=== PATIENT | male | born 1965 | race Caucasian/White ===

== ENCOUNTER 2023-06-13 13:22 | Emergency (ER) | payer MEDICAID ==
[~2023-06-13] VITALS: Ht 165.1 cm; Wt 66.0 kg
[2023-06-13 13:24] VITALS: O2SAT 96
[2023-06-13] MEDS ORDERED: SODIUM CHLORIDE 0.9% 1,000 ML IV ONE (13:45)
[2023-06-13] MEDS ORDERED: DIAZEPAM 5 MG/ML 2ML CPJ IV ONE (13:45)
[2023-06-13 14:20] VITALS: BP 156/110; PULSE 118; RESP 20; TEMP 97.9
[2023-06-13 14:51] LABS: CHLORIDE 98 mEq/L (98-107); INDEX HEMOLYSI 1 (1-3); INDEX ICTERIC 2 (1-4); INDEX LIPEMIC 1 (1-3); POTASSIUM 2.9 mEq/L (3.5-5.1); SODIUM 133 mEq/L (136-145)
[2023-06-13 14:59] LABS: BASOPHILS % 0.5 % (0.0-2.0); EOSINOPHILS % 0.5 % (0.0-5.0); HEMOGLOBIN. 13.4 g/dL (14.0-18.0); LYMPHOCYTES % 7.8 % (20.0-50.0); MEAN CORPUSCULAR HGB CONC 35.4 g/dL (31.0-37.0); MEAN CORPUSCULAR VOLUME 96.1 fL (80.0-94.0); MEAN PLATELET VOLUME 8.9 fl (7.4-10.4); MONOCYTES % 9.6 % (2.0-8.0); NEUTROPHILS % 81.6 % (40.0-76.0); PLATELET 79 x1000/uL (130-400); RED BLOOD CELL COUNT 3.96 mill/uL (4.7-6.1); RED CELL DISTRIBUTION WIDTH 14.3 % (11.6-14.6); WHITE BLOOD COUNT 5.2 x1000/uL (4.5-11.0)
[2023-06-13 15:01] LABS: ALANINE AMINOTRANSFERASE 50 IU/L (13-61); ALBUMIN 3.5 g/dL (3.4-5.0); ASPARTATE AMINOTRANSFERASE 87 IU/L (15-37); BILIRUBIN TOTAL 4.1 mg/dL (0.1-1.0); CALCIUM 8.4 mg/dL (8.5-10.1); CARBON DIOXIDE 23 mEq/L (21-32); CREATINE KINASE 67 IU/L (39-308); CREATININE 0.7 mg/dL (0.6-1.3); GLUCOSE 139 mg/dL (70-105); PROTEIN TOTAL 8.3 g/dL (6.0-8.3); UREA NITROGEN BLOOD 9 mg/dL (7-21)
[2023-06-13 15:03] LABS: LACTIC ACID 4.4 mmol/L (0.4-2.0)
[2023-06-13] MEDS ORDERED: POTASSIUM CHLORIDE 20MEQ/PACKET PO ONE (15:15)
[2023-06-13] MEDS ORDERED: MAGNESIUM 2 G PREMIX 50 ML IV ONE (15:15)
[2023-06-13] MEDS ORDERED: POTASSIUM CHLORIDE INJ 40 MEQ in DEXT 5% WATER 500 ML IV ONE (15:15)
[2023-06-13] MEDS ORDERED: MAGNESIUM/ALUMINUM HYDROXIDE/SIMETHICONE 30ML UDC PO PRN (16:45)
[2023-06-13] MEDS ORDERED: ACETAMINOPHEN 325MG TABLET PO PRN (16:45)
[2023-06-13] MEDS ORDERED: CLONIDINE 0.1MG TABLET PO PRN (16:45)
[2023-06-13] MEDS ORDERED: GUAIFENESIN 200MG/10ML SUGAR FREE UDC PO PRN (16:45)
[2023-06-13] MEDS ORDERED: LORAZEPAM 2MG/ML CPJ IV PRN (16:45)
[2023-06-13] MEDS ORDERED: ENOXAPARIN 40MG/0.4ML SYR SUBCUT SCH (16:45)
[2023-06-13] MEDS ORDERED: DOCUSATE SODIUM 100MG CAPSULE PO PRN (16:45)
[2023-06-13] MEDS ORDERED: ONDANSETRON HCL 4MG/2ML INJ IV PRN (16:45)
[2023-06-13] MEDS ORDERED: IPRATROPIUM/ALBUTEROL 0.5-3(2.5)MG/3ML NEB HHN PRN (16:45)
[2023-06-13] MEDS ORDERED: ACETAMINOPHEN 650MG/20.3ML UDC GT PRN (16:45)
[2023-06-13] MEDS ORDERED: MVI, ADULT NO.1 10 ML, FOLIC ACID 1 MG, THIAMINE HCL 100 MG in SODIUM CHLORIDE 0.9% 1,0... IV SCH ×4 (17:00)
[2023-06-13 17:25] LABS: BILIRUBIN DIRECT 1.5 mg/dL (0.0-0.2); PHOSPHORUS 2.1 mg/dL (2.5-4.9)
[2023-06-13] MEDS ORDERED: LEVETIRACETAM 500MG PREMIX 100 ML IV SCH (17:30)
[2023-06-13 17:56] LABS: VITAMIN B12 SERUM 415 pg/mL (211-911)
[2023-06-13 17:59] LABS: D-DIMER 0.43 mg/L FEU (<0.50); INR 1.2; PARTIAL THROMBOPLASTIN TIME 26.4 sec (23.4-31.0)
[2023-06-13] MEDS ORDERED: FAMOTIDINE 20MG TABLET PO SCH (21:00)
[2023-06-14] MEDS ORDERED: CHLORDIAZEPOXIDE 25MG CAPSULE PO SCH (09:00)
[2023-06-15] MEDS ORDERED: THIAMINE HCL 100MG TABLET PO SCH (09:00)
[2023-06-15] MEDS ORDERED: FOLIC ACID 1MG TABLET PO SCH (09:00)
== END 2023-06-13 19:00 | disposition left against medical advice (07) ==
LOC: ER 13:22 → SUPCPDRO 16:54 → EDBEDREQ 17:48 → EDBEDREQTM 17:48 → ER 19:00
DX: R56.9 Unspecified convulsions (principal); I10 Essential (primary) hypertension
CPT/HCPCS: 99285; 93970; 96365; 70450; 76700; 71045; 96361; 96375; 80053; 82248; 82550; 82607; 82746; 82977; 83605; 83735; 84100; 85025; 85379; 85610; 85730; 36415; 93005; 96368; J3360; J3475; J3480; J7060; J7030; J3411; J3490